=== PATIENT | male | born 1955 | race African-American/Black ===

== ENCOUNTER 2018-11-30 15:39 | Inpatient (IN) | payer MEDICARE, MEDICAID ==
[~2018-11-30] VITALS: Ht 170.2 cm; Wt 68.0 kg
[2018-11-30] VITALS (19 sets, daily range): BP systolic 58–147; BP diastolic 34–111
--- NOTE | 2018-11-30 15:39 | NUR ---
PATIENT BIB ALS TO ER BED 5.
--- NOTE | 2018-11-30 15:39 | NUR ---
ADMK[facility] DX: CHASE BARILLAS RCP AT BEDSIDE
--- NOTE | 2018-11-30 15:40 | NUR ---
ER MD EVALUATING PATIENT AT BEDSIDE.
--- NOTE | 2018-11-30 15:40 | NUR ---
RT AT BEDSIDE.
--- NOTE | 2018-11-30 15:45 | NUR ---
[place] [facility] [place] STAFF AT FACILITY WAS PREVIOUSLY AWAKE AND ALERT, AT 1115 TODAY. REPORTS X1 EPISODE OF VOMITING, THEN PER STAFF, PT BECAME ALOC. EMS PLACED IO L LEG RUNNING NS AND PLACED 15L NRM, PLACED ON 100mA PACED, 60BPM.
--- NOTE | 2018-11-30 15:55 | NUR ---
INTUBATED BY DR LUCIAN DOWD, RESIDENT MD DR SEAN MILLER ED/MD AT BEDSIDE Karlene BARILLAS RCP AND Marisol JORDAN RCP ATTENDING INTUBATION CONFIRMED BY ETCO2 DETECTOR AUSCULTATION TO UPPPER AND LOWER QUADRANT TO THE BILATERAL PULMONARY CASTELLON AUSCULTATION TO ABDOMINAL REGION
[2018-11-30] MEDS ORDERED: NACL 0.9% 2,000 ML IV SCH ×2 (15:56→16:49)
[2018-11-30] MEDS ORDERED: ETOMIDATE 20 MG/10 ML VIAL IVP ONE (16:00)
[2018-11-30] MEDS ORDERED: CLINDAMYCIN 900 MG in DEXTROSE 5% 100 ML IV ONE (16:00)
[2018-11-30] MEDS ORDERED: methylPREDNISolone SS 125 MG/2 ML VIAL IVP ONE (16:00)
[2018-11-30] MEDS ORDERED: GENTAMICIN 80 MG in DEXTROSE 5% 100 ML IV ONE (16:00)
[2018-11-30] MEDS ORDERED: MAG SULF 2000 MG/WATER PREMIX 50 ML IV ONE (16:00)
--- NOTE | 2018-11-30 16:00 | NUR ---
patient intubated by residents under Dr. Carlson observation. equal chest rise and fall. RT at bedside. patient placed on mechanical vent. no longer being paced. Sinus tachycardia on monitor.
--- NOTE | 2018-11-30 16:03 | NUR ---
PLACED ON [employer] R860 VENTILATOR WITH SETTINGS NOTED ON VENTILATOR FLOW SHEET DR SEAN MILLER NOTIFIED
--- NOTE | 2018-11-30 16:05 | NUR ---
SPUTUM OBTAINED FOR VAP
--- NOTE | 2018-11-30 16:10 | NUR ---
BP LOW AT 56/36. DR MILLER MADE AWARE. WILL GIVE BOLUS X2 ORDERED.
--- NOTE | 2018-11-30 16:18 | NUR ---
US AT BEDSIDE TO ASSIST IN US GUIDED CENTRAL LINE INSERTION BY DR CASTRO
[2018-11-30] MEDS ORDERED: GENTAMICIN 80 MG/2 ML VIAL ONE (16:21)
[2018-11-30] MEDS ORDERED: CLINDAMYCIN 900 MG/6 ML VIAL IV ONE (16:21)
--- NOTE | 2018-11-30 17:00 | NUR ---
BP DROPPING AT 48/27. DR MILLER MADE AWARE. WILL FOLLOW UP ON VASOPRESSOR DRIP ORDER.
[2018-11-30] MEDS ORDERED: LOV40I SUBQ (17:05)
[2018-11-30] MEDS ORDERED: FINA5TAB1 GT (17:05)
[2018-11-30] MEDS ORDERED: LEVEMIR SUBQ (17:05)
[2018-11-30] MEDS ORDERED: NOREPINEPHRINE 8 MG in DEXTROSE 5% 250 ML IV PRN (17:05)
[2018-11-30] MEDS ORDERED: KEP500L GT (17:05)
[2018-11-30] MEDS ORDERED: DOCU250S72 GT ×2 (17:05)
[2018-11-30] MEDS ORDERED: METO50TE2 GT (17:05)
[2018-11-30] MEDS ORDERED: AMLO10TA GT (17:05)
[2018-11-30] MEDS ORDERED: SENN-73 GT (17:05)
--- NOTE | 2018-11-30 17:45 | NUR ---
PATIENT NOREPINEPHRINE DRIP STARTED AT 8MCG/MIN PER DR SANDOVAL VERBAL ORDER. WILL MONITOR CLOSELY.
[2018-11-30 17:55] LABS: BASOPHILS % (AUTO) 0.2 % (0.0-2.0); HEMATOCRIT 33.1 % (36-52); LYMPHOCYTES # (AUTO) 0.9 K/uL (2.0-11.5); LYMPHOCYTES % (AUTO) 7.4 % (20.5-51.1); MEAN CORPUSCULAR HEMOGLOBIN 30 pg (27-31); MEAN CORPUSCULAR HGB CONC 33 g/dL (33-37); MEAN CORPUSCULAR VOLUME 90.4 fL (80-94); MONOCYTES # (AUTO) 0.4 K/uL (0.8-1.0); MONOCYTES % (AUTO) 3.6 % (1.7-9.3); NEUTROPHILS # (AUTO) 10.5 K/uL (1.8-7.7); NEUTROPHILS % (AUTO) 88.8 % (42.2-75.2); PLATELET COUNT (AUTO) 174 K/uL (140-450); RED BLOOD CELL COUNT(AUTO) 3.65 MIL/uL (4.20-6.10); RED CELL DISTRIBUTION WIDTH 12.8 % (11.6-13.7); WHITE BLOOD COUNT (AUTO) 11.9 K/uL (4.8-10.8)
--- NOTE | 2018-11-30 18:00 | NUR ---
BP HAS NOT IMPROVED. NOEPI INCREASED.
--- NOTE | 2018-11-30 18:09 | NUR ---
BP UP TO 78/53. HR STILL LOW AT 45. DR MILLER AWARE OF PT STATUS.
[2018-11-30 18:12] LABS: ANION GAP 11.7 (8-16); CARBON DIOXIDE 29.2 mmol/L (21-32); CREATININE 1.4 mg/dL (0.7-1.3); POTASSIUM 3.9 mmol/L (3.5-5.1); TOTAL BILIRUBIN 0.5 mg/dL (0.0-1.0)
[2018-11-30 18:15] LABS: PROTHROMBIN TIME 9.8 secs (10.8-13.4)
--- NOTE | 2018-11-30 18:15 | NUR ---
PATIENT DAUGHTER AND GRANDDAUGHTER AT BEDSIDE.
--- NOTE | 2018-11-30 18:30 | NUR ---
BP IMPROVED AT 107/69. HR STILL LOW AT 49. DR MILLER MADE AWARE OF PATIENT STATUS.
--- NOTE | 2018-11-30 18:45 | NUR ---
BP UP TO 130/79. DR MILLER MADE AWARE, ORDERED TO LOWER EPI BY 4MCG.
--- NOTE | 2018-11-30 19:00 | NUR ---
ALVAREZ CATH INSERTED WITHOUT RESISTANCE. PATIENT TOLERATED WELL. URINE CLEAR AND YELLOW. URINE COLLECTED AND SENT TO LAB.
[2018-11-30 19:11] LABS: ACETONE, SERUM NEGATIVE (NEGATIVE)
[2018-11-30 19:18] LABS: MAGNESIUM 3.4 mg/dL (1.8-2.4); URIC ACID 5.2 mg/dL (2.6-7.2)
--- NOTE | 2018-11-30 19:22 | NUR ---
REPORT GIVEN TO NIGHT NURSE KENNEDY FOR CONTINUED CARE. PATIENT BP STABLE, HR LOW.
--- NOTE | 2018-11-30 19:34 | NUR ---
RECEIVED REPORT FROM AM SHIFT. 63/M. CC: ALOC IN C[facility] AFTER 1 EPISODE VOMITTING. PT ETT TO VENT. EVEN UNLABORED BREATHING. LUNG SOUNDS CLEAR. NONVERBAL. ON LEVOPHED 12MCG. LIJ SITE PATENT. G TUBE TO LUQ. FLACC 0. SKIN INTACT.
[2018-11-30 19:39] LABS: APPEARANCE,URINE CLEAR (CLEAR); BILIRUBIN,URINE NEGATIVE (NEGATIVE); BLOOD, URINE 2+ (NEGATIVE); COLOR,URINE YELLOW (YELLOW); LEUKOCYTE ESTERASE ,URINE NEGATIVE (NEGATIVE); NITRITE, URINE NEGATIVE (NEGATIVE); UGLUCOSE 1+ (NEGATIVE)
--- NOTE | 2018-11-30 19:48 | NUR ---
CALLED ICU. PT TO BE TRANSFERRED TO ICU BED 3. WILL GO TO CT WHEN RT ARRIVES.
[2018-11-30 20:00] LABS: RBC,URINE 80-100 /HPF (0-5); WBC,URINE 0-5 /HPF (0-5)
--- NOTE | 2018-11-30 20:20 | NUR ---
TRANFERED TO ICU ROOM 3. ENDORSED CARE TO NIGHT RN. SINUS SHARAD ON MONITOR.
--- NOTE | 2018-11-30 20:25 | NUR ---
RECEIVED PT FROM ER VIA RLG. FLACC 0. PUPILS ARE EQUAL BILATERALLY. PUPIL SIZE 5MM. PT AFEBRILE. UNABLE TO MAKE NEEDS KNOWN. NONVERBAL. PT INTUBATED. ETT TO VENT WITH SETTINGS: AC16, FIO2 70%, TV 500, PEEP 5. LUNG SOUNDS RHONCHI. RESPIRATIONS ARE EVEN AND UNLABORED. S1+S2 HEARD. PULSE IS PALPATED AND PRESENT. SB ON MONITOR. RECEIVED PT ON LEVOPHED 8MG MIXED IN D5W 250ML BG RUNNING AT 12MCG/MIN. ABDOMEN ROUND, SOFT AND NONDISTENDED. GTUBE IN PLACE ON LUQ. ALVAREZ CATHETER IN PLACE. CLEAR AND YELLOW URINE NOTED. PT HAS LEFT IJ CENTRAL IN PLACE THAT IS INTACT AND ASYMPTOMATIC. PT HAS PERIPHERAL IV ACCESS ON RIGHT HAND 22G. PT WAS CONNECTED TO BEDSIDE MONITOR. MRSA SPECIMEN COLLECTED. ALL SAFETY PRECAUTIONS ARE IN PLACE. WILL CONTINUE TO MONITOR PT.
--- NOTE | 2018-11-30 20:40 | NUR ---
RECEIVED CALL FROM DR. HU, UPDATED REGARDING CRITICAL RESULTS OF CT SCAN AND ORDERS GIVEN TO TRANSFER PT FOR HIGHER LEVEL OF CARE. NOTIFIED MD HR 45-50 BP 138/94 100% SPO2 ETT TO VENT. PT ON 12 MCG/MIN LEVOPHED INFUSING INTO CENTRAL LINE LIJ. PACKAGE MAKER MADE AWARE. WILL CONTINUE TO OBSERVE.
--- NOTE | 2018-11-30 21:00 | NUR ---
PT'S DAUGHTER, NALLELY MARI, SIGNED THE PAPERS NEEDED FOR TRANSFER TO HIGHER LEVEL OF CARE. FAMILY LEFT THE UNIT. DIRECT NUMBER OF ICU GIVEN TO FAMILY.
--- NOTE | 2018-11-30 21:15 | NUR ---
PT'S DAUGHTER, NALLELY MARI, AT BEDSIDE TO SEE PT. SHE WAS UPDATED REGARDING PT'S CONDITION AND THE CURRENT PLAN. PT'S DAUGHTER WAS ABLE TO GIVE SOME HISTORY REGARDING THE PT.
--- NOTE | 2018-11-30 21:58 | NUR ---
[facility] FIRE PREVENTION SPECIALIST REQUESTEDTO FAX PATIENT FACE SHEET ,HISTORYAND PHYSICAL AND WAS SENT
--- NOTE | 2018-11-30 22:32 | NUR ---
CALLED BENCH MACHINE OPERATOR TO FOLLOW-UP REGARDING STATUS OF ATTEMPT TO TRANSFER PT. ACCORDING TO BENCH MACHINE OPERATOR, [facility] TO CALL BACK REGARDING BED FOR PT.
--- NOTE | 2018-11-30 22:39 | NUR ---
RECEIVED A CALL FROM DR. HU. UPDATED HIM REGARDING THE PT TRANSFER BEING ARRANGED. INFORMED HIM THAT PT'S DAUGHTER WAS IN THE UNIT EARLIER. REPORTED TO HIM THE RESULT OF THE CT OF HEAD TAKEN PRIOR TO ARRIVAL IN THE UNIT. GAVE PT'S DAUGHTER'S PHONE NUMBER TO DR. HU FOR THEM TO DISCUSS PT'S CONDITION.
--- NOTE | 2018-11-30 23:10 | NUR ---
PT NOTED TO HAVE DECREASED TEMPERATURE AT THIS TIME. MARGAUX ENCARNACION PUT ON PT TO HELP WITH TEMPERATURE REGULATION.
[2018-11-30] MEDS ORDERED: OSMITROL 25% 12.5 GM/50 ML VIAL IV ONE (23:15)
--- NOTE | 2018-11-30 23:35 | NUR ---
BLOOD DRAWN FROM 'S CENTRAL LINE AND SPECIMEN WAS SENT TO THE LAB.
--- NOTE | 2018-11-30 23:45 | NUR ---
NO CHANGE IN PT'S CONDITION AT THIS TIME. VS STABLE. PT REMAINS ON LEVOPHED AT 10MCG/MIN. BILATERAL PUPIL SIZE REMAINS 5MM.
[2018-12-01] VITALS (82 sets, daily range): BP systolic 89–165; BP diastolic 39–97
[2018-12-01] MEDS ORDERED: OSMITROL 25% 12.5 GM/50 ML VIAL IV ONE ×4 (00:03→07:58)
--- NOTE | 2018-12-01 00:38 | NUR ---
SPOKE WITH BILL, WOODWINDS TEACHER @ [facility] FOR BED PLACEMENT. HOSPITAL PHARMACY TECHNICIAN STATED BED UNAVAILABLE @ THIS TIME. WILL CONTINUE TO OBSERVE.
--- NOTE | 2018-12-01 00:45 | NUR ---
1 OF 4 BOTTLE OF MANNITOL RUNNING AT THIS TIME. WILL MONITOR THE PATIENT CLOSELY. VS REMAINS STABLE AT THIS TIME. TRYING TO BRING PT TEMPERATURE UP AT THIS TIME USING MARGAUX ENCARNACION.
--- NOTE | 2018-12-01 01:00 | NUR ---
SPOKE WITH [facility] FOR POSSIBLE TRANSFER, HOSPITAL CURRENTLY FULL CAPACITY. WILL FOLLOW UP.
--- NOTE | 2018-12-01 01:15 | NUR ---
SPOKE WITH ANGELINA LAWRENCECREOSOTING ENGINEER @ [facility] FOR TRANSFER, FACESHEET, H&P FAXED, NO BED AVAILABLE @ THIS TIME.
--- NOTE | 2018-12-01 01:20 | NUR ---
I PAPERWORK FAXED TO TRANSFER CENTER, WILL FOLLOW UP WITH TRANSFER; PENDING DUE TO BED AVAILABILITY.
--- NOTE | 2018-12-01 01:56 | NUR ---
SPOKE WITH [facility], NO BED AVAILABLE.
--- NOTE | 2018-12-01 02:00 | NUR ---
2 OUT OF 4 BOTTLE OF MANNITOL RUNNING AT THIS TIME. NEW TUBING WAS USED WELL.
--- NOTE | 2018-12-01 02:00 | NUR ---
SPOKE WITH MEHRAN @ [facility], ADVISED TO HAVE PROVIDER TO PROVIDER. [phone] HU, NOTIFIED MD TO CALL [facility] TO SPEAK TO MD. PH#[phone].
--- NOTE | 2018-12-01 02:15 | NUR ---
SPOKE WITH SALOMÓN @ [facility], SALOMÓN WOODARD, ADVISED TO HAVE PHYSICIAN SPEAK TO JULIANNA CARDOZA MD FOR POSSIBLE TRANSFER. FACESHEET, H&P FAXED TO [phone]. TEL NO. [phone] HU.
--- NOTE | 2018-12-01 02:24 | NUR ---
CALLED [facility], ICU BEDS FULL @ THIS TIME PER SALES REPRESENTATIVE [employer], JAYDE. CALL BACK NUMBER FOR [facility] GIVEN IF BED BECOMES AVAILABLE.
--- NOTE | 2018-12-01 02:55 | NUR ---
SPOKE WITH DR. HU AND UPDATED PT STATUS, HR 58 BP113/76 100% SPO2 RR12. NO BED AVAILABLE FOR TRANSFER. STATED; NEUROLOGY TO SEE PT THIS AM. WILL CONTINUE TO OBSERVE.
--- NOTE | 2018-12-01 03:00 | NUR ---
RT WAS CONTACTED VIA TELEPHONE TO PLACE PATIENT ON CPAP FOR A EVALUATION BY DR ALBERTO. PATIENT WAS PLACED ON CPAP PEEP 5 PS 5 FIO2 70 AND FAILED SPONTANEOUS BREATHING TRIAL. PATIENT WENT APNEIC AND DID NOT TOLERATE IT. PATIENT WAS NOT BREATHING ON HIS OWN AND VENTILATOR SWITCHED BACK TO AC/VC FOR SAFETY. DR ALBERTO WAS NOTIFIED AND PATIENT WAS PLACED BACK ON AC CONTROL (ASSIST CONTROL) AND WILL BE MONITORED CLOSELY BY NURSING AND RT STAFF
--- NOTE | 2018-12-01 03:46 | NUR ---
RESPIRATIONS EVEN AND UNLABORED AT THIS TIME. VS STABLE. FLACC 0. PT STILL NOT RESPONSIVE EVEN TO DEEP PAIN. PT TURNED AND REPOSITIONED.
--- NOTE | 2018-12-01 04:39 | NUR ---
CHECKED PT'S TEMPERATURE AT THIS TIME AND WAS 99.3; GREATLY IMPROVED FROM LAST CHECK WHICH READ 91.3
--- NOTE | 2018-12-01 05:15 | NUR ---
SPOKE WITH PATRICIA AND MATTY FROM [facility] WITH [facility]. UPDATED REGARDING PT STATUS, FAXED FACE SHEET AND HP. AWAITING BED FOR PT.
[2018-12-01] MEDS: NOREPINEPHRINE 8 MG in DEXTROSE 5% 250 ML IV PRN ×2 (05:30→18:36)
[2018-12-01] MEDS ORDERED: NOREPINEPHRINE 4 MG/4 ML VIAL IV ONE (05:41)
--- NOTE | 2018-12-01 05:59 | NUR ---
SPOKE WITH MATTY PACHECO FROM [facility], CRITICAL CARE TRANSPORT TO BE SETUP AND PUT ON WILL CALL, DETAILS TO FOLLOW, AWAITING BED. INFORMED CM THAT PT ON LEVOPHED 15 MCG/MIN AND ETT TO VENT @ 70% FIO2. SPO2 100%.
--- NOTE | 2018-12-01 06:06 | NUR ---
INFORMED DR HU THAT 25 GRAM MANNITOL GIVEN INSTEAD OF ORDERED 50 GRAMS DUE TO LACK OF SUFFICIENT SUPPLY. MD AWARE. NO NEW ORDERS @ THIS TIME. VSS. WILL CONTINUE TO OBSERVE.
--- NOTE | 2018-12-01 06:45 | NUR ---
NEW ORDERS RECEIVED FROM DR HU, HOLD HOME MEDS FOR NOW, IV ROCEPHIN 1 GRAM DAILY, AND NEURO CONSULT; DR FLORES. WILL CONTINUE TO OBSERVE.
--- NOTE | 2018-12-01 06:55 | NUR ---
FIO2 TITRATED TO 60%. SPO2 100%. PT NOT IN ANY DISTRESS OR SOB AT THIS TIME. WILL CONTINUE TO MONITOR.
--- NOTE | 2018-12-01 06:58 | NUR ---
NOTIFIED DR FLORES OFFICE FOR CONSULT FROM DR. HU.
--- NOTE | 2018-12-01 07:07 | NUR ---
RECEIVED INTUBATED PT WITH A 7.5 ETT SECURED @22 TEETH/GUMS ON VENT. SETTINGS AC 16, VT 500, PEEP 5 AND FIO2 60%. PT SUCTIONED OBTAINED SMALL AMOUNT OF THICK BROWN SECRETIONS, AIRWAY IS PATENT AND ETT IS SECURE WITH ANCHOR FAST. NO GAG REFLEX PRESENT. THERE IS NO BITING OR KINKING OF ETT. VENT IS PLUGGED INTO A RED OUTLET WITH ALARMS ON AND FUNCTIONING. WILL CONTINUE TO MONITOR.
--- NOTE | 2018-12-01 07:30 | NUR ---
RECEIVED PATIENT ON BED .ETT TO VENT.WITH FIO2 60 PERCENT SIZE 7.5 AT 22 CM TEETH LINE.PT UNRESPONSIVE,NO GAG REFLEX,PUPILS NONREACTIVE 5 MM FIXED AND DILATED.DR HU AWARE.ALL UPPER AND LOWER EXTREMITIES FLACCID,UNRESPONSIVE TO PAIN.ALVAREZ TO GRAVITY.NPO.GTUBE CLAMPED LEFT IJ TRIPLE LUMEN WITH LEVOPHED DRIP AT 18 MCG/MIN.NSR ON THE MONITOR.WILL MONITOR.
--- NOTE | 2018-12-01 07:50 | NUR ---
DR HU MAKING ROUNDS AND UPDATED ABOUT PTS CONDITION ESPECIALLY PT IS UNRESPONSIVE.PUPILS 5 MM FIXED,ALL EXTREMITIES FLACCID.NO GAG REFLEX.
--- NOTE | 2018-12-01 08:55 | NUR ---
Left a voicemail for [facility] , advising that we need an EEG done for the patient STAT. Provided them with Nursing Supervisors call back number to schedule the EEG. Notified foundry metallurgist Katelynn of the status.
--- NOTE | 2018-12-01 09:07 | NUR ---
I received a return call and spoke with Crystal at [facility] and he advised me that the soonest they can have someone come out is 3PM today to do the EEG. I booked them to come out for that time and requested if they can come any sooner to please do so. lap layer Katelynn notified.
[2018-12-01 09:30] LABS: HEMATOCRIT 37.7 % (36-52); HEMOGLOBIN 12.5 g/dL (12.0-18.0); MEAN CORPUSCULAR HEMOGLOBIN 30 pg (27-31); MEAN CORPUSCULAR HGB CONC 33 g/dL (33-37); MEAN CORPUSCULAR VOLUME 89.8 fL (80-94); PLATELET COUNT (AUTO) 181 K/uL (140-450); RED CELL DISTRIBUTION WIDTH 12.9 % (11.6-13.7); WHITE BLOOD COUNT (AUTO) 24.3 K/uL (4.8-10.8)
--- NOTE | 2018-12-01 09:30 | NUR ---
SEEN BY DR. ROSALES. HE TALK TO PT. DAUGHTER ALTA HE INFORM HER ABOUT PT, CONDITION.ALTA SAID SHE WOULD LIKE HER FATHER TO TRANSFER TO [facility] IN [facility] IF THERE IS NO OTHER HOSPITAL BED OPEN. DR. HU AND HOLLY NOTIFIED.
[2018-12-01 09:52] LABS: ALBUMIN 2.3 g/dL (3.4-5.0); ANION GAP 13.1 (8-16); CARBON DIOXIDE 26.3 mmol/L (21-32); CREATININE 2.1 mg/dL (0.7-1.3); POTASSIUM 3.4 mmol/L (3.5-5.1); TOTAL BILIRUBIN 0.3 mg/dL (0.0-1.0)
--- NOTE | 2018-12-01 09:59 | NUR ---
PATIENT HAS BEEN SCREENED AND CATEGORIZED HIGH NUTRITION RISK. PATIENT WILL BE SEEN WITHIN 1-2 DAYS OF ADMISSION. 12/01/18-12/02/[address]
--- NOTE | 2018-12-01 10:00 | NUR ---
AWAITING FOR [facility] TO GIVE FILTER SO RN CAN HANG MANNITOL.
[2018-12-01] MEDS: OSMITROL 25% 12.5 GM/50 ML VIAL IV SCH ×4 (10:53→14:09)
[2018-12-01 12:54] LABS: BASOPHILS % (MANUAL) 0 % (0-2); EOSINOPHILS % (MANUAL) 0 % (0-4); LYMPHOCYTES % (MANUAL) 7 % (20-46); MONOCYTES % (MANUAL) 2 % (5-12)
--- NOTE | 2018-12-01 14:02 | NUR ---
REST ROOM MAID COORDINATING WITH ARCHIVAL STUDIES PROFESSOR ZANA TO TRANSFER PT.BRUSH TRIMMING MACHINE SETTER BONNIE IS AWARE.
--- NOTE | 2018-12-01 15:40 | NUR ---
dr coates made aware eeg needs to be read.
[2018-12-01] MEDS ORDERED: PANTOPRAZOLE 40 MG INJ VIAL IVP SCH ×2 (15:54→17:50)
--- NOTE | 2018-12-01 16:14 | NUR ---
12/01/18 RD INITIAL ASSESSMENT COMPLETED PLEASE REFER TO NUTRITION ASSESSMENT UNDER CARE ACTIVITY FOR ESTIMATED NUTRITIONAL NEEDS. RD RECOMMENDATIONS: 1. IF PT IS TO START TF, RECOMMEND VITAL AF 1.2 AT 20ML/HR INCRESE 10ML Q 4HR TO GOAL 65ML/HR, FWF:100ML Q 4HR VIA G-TUBE. THIS WILL PROVIDE 1872KCAL, 117G PROTEIN, 600ML FWF AND 1865ML TOTAL FLUID DAILY. THIS MEETS 92% CALORIC NEEDS AND 114% PROTEIN NEEDS. 2. RD WILL F/U 2-3 DAYS; HIGH RISK. YANCI SHABAZZ RD
--- NOTE | 2018-12-01 17:00 | NUR ---
DR HU AWARE OF K=3.4
--- NOTE | 2018-12-01 17:42 | NUR ---
VENT CHECK COMPLETED. ETT IS SECURE WITH A PATENT AIRWAY. PT NOT IN ANY DISTRESS AT THIS TIME. VENT ALARMS REMAIN ON AND FUNCTIONING.
--- NOTE | 2018-12-01 17:50 | NUR ---
REPORT GIVEN TO RODRIGO HODGES.
[2018-12-01] MEDS ORDERED: OSMITROL 25% 12.5 GM/50 ML VIAL IV SCH (18:00)
--- NOTE | 2018-12-01 18:00 | NUR ---
[facility] HERE .REPORT GIVEN TO ROSALIO.SISTER AT THE BEDSIDE.PER FAMILY DAUGHTER UNABLE TO COME BUT AWARE OF TRANSFER.
[2018-12-02] MEDS ORDERED: PANTOPRAZOLE 40 MG INJ VIAL IVP SCH (09:00)
== END 2018-12-01 18:20 | disposition short-term general hospital (02) | DRG 871 ==
LOC: MED 15:39 → MIC 19:00
PROVIDERS: ADMIT Hospitalist; ATTEND Hospitalist
PROC: 02HV33Z Insertion of Infusion Device into Superior Vena Cava, Percutaneous Approach (ICD-10-PCS; principal; 2018-11-30)
PROC: B548ZZA Ultrasonography of Superior Vena Cava, Guidance (ICD-10-PCS; 2018-11-30)
PROC: 5A1935Z Respiratory Ventilation, Less than 24 Consecutive Hours (ICD-10-PCS; 2018-11-30)
PROC: 0BH17EZ Insertion of Endotracheal Airway into Trachea, Via Natural or Artificial Opening (ICD-10-PCS; 2018-11-30)
PROC: 4A00X4Z Measurement of Central Nervous Electrical Activity, External Approach (ICD-10-PCS; 2018-12-01)
DX: A41.9 Sepsis, unspecified organism (principal); J69.0 Pneumonitis due to inhalation of food and vomit; R65.21 Severe sepsis with septic shock; J96.00 Acute respiratory failure, unspecified whether with hypoxia or hypercapnia; I62.9 Nontraumatic intracranial hemorrhage, unspecified; G93.40 Encephalopathy, unspecified; E11.9 Type 2 diabetes mellitus without complications; I10 Essential (primary) hypertension; G40.909 Epilepsy, unspecified, not intractable, without status epilepticus; Z88.8 Allergy status to other drugs, medicaments and biological substances; Z93.1 Gastrostomy status
CPT/HCPCS: 31500; 36415; 36556; 36600; 51702; 70450; 71045; 80053; 81001; 82009; 82140; 82550; 82553; 82803; 83036; 83605; 83735; 83874; 83880; 83930; 84484; 84550; 85025; 85379; 85610; 85730; 86886; 86900; 86901; 87040; 87070; 87081; 87086; 87186; 87205; 87804; 89220; 93005; 94003; 95824; 96365; 96367; 96368; 96375; 99291; C9113; G0482; J0696; J1580; J1642; J2150; J2930; J3475; J3490; J7030; J7060; Q0092